=== PATIENT | female | born 1960 | race African-American/Black ===

== ENCOUNTER → 2017-01-09 16:11 | Outpatient (CLI) | payer MEDICAID ==
[2010-10-19 08:17] VITALS: BMI 23.2
== END | disposition home or self-care (01) ==
LOC: D.CT 16:00
DX: R06.02 Shortness of breath (principal)

== ENCOUNTER 2017-03-01 13:37 | Inpatient (IN) | payer MEDICAID ==
[~2017-03-01] VITALS: Ht 170.2 cm; Wt 75.1 kg
[2017-03-01] VITALS (9 sets, daily range): BP systolic 90–108; BP diastolic 54–75; BMI 22.6
--- NOTE | ~2017-03-01 | HP ---
PATIENT: MEGGAN PATEL MEDICAL RECORD: [id number] ACCOUNT: [id number] LOCATION:[facility]2307 : 62 ADMISSION DATE: 03/01/17 HISTORY AND PHYSICAL EXAMINATION HISTORY OF PRESENT ILLNESS: A 56-year-old black female, who is a patient of mine, presented to the clinic upon day of admission with a 2-day history of a rash that has been present on her lower extremities. The patient states she felt increasing amount of pain in her right buttock area and has been unable to sit for the last 24 hours, no drainage from this area, but she noticed that she had a discharge present on her underwear when she went to the restroom after she arrived to the clinic. The patient stated that she felt uneasy and did not feel like in her usual state of health. Over the last 3-4 days, she felt a pop sensation in her shoulders when she had increased amount tightness in her shoulders. The patient is evaluated and found to have evidence of possible sepsis. Her blood pressure is low and she has rashes present. She needs to be hospitalized for IV antibiotics and appropriate intervention. PAST MEDICAL HISTORY: Significant for pulmonary embolus, lupus, lumbar radiculopathy, lymphedema, IBS, constipation, dyspnea, chronic low back pain, depression, pancytopenia, recurrent anemia, ADD, GERD, anxiety, asthma, shortness of breath. PAST SURGICAL HISTORY: The patient surgically has a cyst taken off of her back. She has tendon release on her right upper extremity and also a cholecystectomy. SOCIAL HISTORY: The patient does not smoke, does not drink alcohol. MEDICATION ALLERGIES: INCLUDE TALWIN. PRESENT MEDICATIONS: Include Celexa 40 mg daily, Prilosec 20 mg b.i.d., [place] 10 mg t.i.d. p.r.n., Klonopin 1 mg q.i.d. p.r.n., ProAir inhaler for rescue, Singulair 10 mg q.h.s., Symbicort 160 two puffs b.i.d., Eliquis 2.5 mg b.i.d., B12 vitamin, Plaquenil 200 mg b.i.d. She also has Linzess 145 mcg. PHYSICAL EXAMINATION: VITAL SIGNS: Blood pressure is 80/50 with mild tachycardia that is present. Her heart rate today is only 95 on exam. She is afebrile, pulse ox 97%. GENERAL: She is a thin, ill-appearing 56-year-old black female. Nurse, Golden, was present during her exam. HEENT: Her pupils are equal, round and reactive to light. Extraocular movements are intact. Oral cavity and oropharynx are otherwise clear. NECK: No cervical or pharyngeal adenopathy. No nuchal rigidity. LUNGS: Have shallow rales heard in the bases, but otherwise clear. HEART: Regular rate and rhythm with I/ systolic ejection murmur. ABDOMEN: Soft, nontender, positive bowel sounds. No hepatosplenomegaly, no masses. EXTREMITIES: She has evidence of a blanching maculopapular-type rash on bilateral lower extremities extending up to the buttocks area, it is warm and also blanches. She has good capillary refill of 2 seconds are noted. She has good ____. BUTTOCKS: Visualization of her buttock area shows an open draining purulent abscess on the right buttock area, expressed approximately 7 cc of pus from this area. We will obtain culture in the hospital from this aspect. HISTORY AND PHYSICAL [id number] MEGGAN PATEL PLAN: The patient was given a gram of Rocephin and being admitted to the ICU for sepsis and IV antibiotics. Orders were written. The patient was notified of the admitting team. Also, consulted pulmonary with Dr. Dela Cruz for ICU management and with Dr. Oliva for infectious disease. TRANSINT:[id number] Voice Confirmation ID: [id number] DOCUMENT ID: [id number] ORION PECK MD CC: [id number] DICTATION DATE: 03/01/17 145 ROOFING MACHINE OPERATOR: 03/01/17 1614 ADM IN [facility] [address] [place] [address]
[2017-03-01] MEDS ORDERED: CELEXA40 MG PO (14:02)
[2017-03-01] MEDS ORDERED: OMEPRAZOLE40 MG PO (14:02)
[2017-03-01] MEDS ORDERED: HYDROCODONE-APA1 TAB PO (14:03)
[2017-03-01] MEDS ORDERED: PROAIR HFA8.5 GM INH (14:03)
[2017-03-01] MEDS ORDERED: KLONOPIN1 MG PO (14:03)
[2017-03-01] MEDS ORDERED: SYMBICORT 16010.2 GM INH (14:04)
[2017-03-01] MEDS ORDERED: SINGULAIR10 MG PO (14:04)
[2017-03-01] MEDS ORDERED: ELIQUIS5 MG PO (14:04)
[2017-03-01] MEDS ORDERED: MULTIPLE VITAMI1 TA1 PO (14:05)
[2017-03-01] MEDS ORDERED: PLAQUENIL200 MG PO (14:05)
[2017-03-01] MEDS ORDERED: LINZESS145 MCG PO (14:06)
[2017-03-01] MEDS ORDERED: TESSALON PERLE100 MG PO (14:06)
[2017-03-01] MEDS ORDERED: DESERYL100 MG PO (14:07)
[2017-03-01 15:48] LABS: BASOPHILS 0 % (0-2); EOSINOPHILS 0.1 % (0-7); HEMATOCRIT 31.3 % (36.0-48.0); HEMOGLOBIN 10.1 g/dL (12-16); IMMATURE GRANULOCYTES 0.3 % (0-5); LYMPHOCYTES 7.1 % (15-50); MCH 28.9 pg (26.0-34.0); MCHC 32.3 g/dL (31.0-37.0); MCV 89.7 fL (80.0-100.0); MEAN PLATELET VOLUME 10.1 fL (7.4-10.4); MONOCYTES 7.9 % (2-11); NEUTROPHILS 84.6 % (40-80); PLATELET COUNT 168 10x3/uL (130-400); RBC 3.49 10x6/uL (4.00-5.40); RDW 12.5 % (11.5-14.5); WBC 10.6 10x3/uL (4.8-10.8)
[2017-03-01 16:14] LABS: ALBUMIN 3.2 g/dL (3.4-5.0); ANION GAP 9.8 mmol/L (8-16); BILIRUBIN - TOTAL 0.6 mg/dL (0.2-1.3); CALCIUM 8.2 mg/dL (8.5-10.1); CARBON DIOXIDE 29.6 mmol/L (21.0-32.0); CREATININE - SERUM 1.4 mg/dL (0.6-1.3); POTASSIUM - SERUM 3.4 mmol/L (3.5-5.1); PROTEIN - SERUM 6.5 g/dL (6.4-8.2); THYROID STIMULATING HORMONE 0.94 uIU/mL (0.36-3.74)
--- NOTE | 2017-03-01 18:10 | NUR ---
PATIENT NOTED TO HAVING RED RASH ON THIGHS AND LEGS, STATED DOCTOR TOLD HER IT WAS FROM HER BOILS, THIS WAS NOTED PRIOR TO SURGERY, GUILLAUME.
--- NOTE | 2017-03-01 18:41 | NUR ---
PATIENT BACK FROM SURGERY. VITALS STABLE. OXYGEN 2L N/C IN USE SECONDARY TO SATS 88% ON ROOM AIR. SHE HAS PRIMROSE DRAIN. DR NARAYAN STATED THAT THE DRESSING MAY NEED TO BE CHANGED A COUPLE TIMES THROUGHOUT THE EVENING, BUT THE PACKING WOULD BE CHANGED TOMORROW. PATIENT C/O PAIN 8/10. MORPHINE TELEVISION PRESENTER SET UP PER ORDERS. PATIENT DENIES FURTHER NEEDS.
--- NOTE | 2017-03-01 19:30 | NUR ---
RECEIVED CARE OF PT, ASSESSMENT PER FLOWSHEET. PT ALERT AND ORIENTED X 4, ON 3L O2 VIA NC, BREATH SOUNDS DIMINISHED IN BASES, PPP, DRESSING NOTED TO RECTAL/PERINEAL AREA CDI, HR SR AT A RATE OF 81 ON CM, MORPHINE VENEER MANUFACTURER BUTTON AND CALL LIGHT IN REACH, ASSISTED PT TO REPOSITION, DENIES ANY OTHER NEEDS.
--- NOTE | 2017-03-01 21:30 | NUR ---
PT NIECE IN FOR VISITATION, UPDATE GIVEN.
--- NOTE | 2017-03-01 23:30 | NUR ---
REASSESSMENT PER FLOWSHEET, NO ACUTE CHANGES NOTED. ICE WATER PROVIDED PER PT REQUEST, DENIES ANY OTHER NEEDS, VSS, CONT POC.
[2017-03-02] VITALS (24 sets, daily range): BP systolic 87–116; BP diastolic 47–77; Ht 170.2 cm; Wt 75.1 kg
--- NOTE | 2017-03-02 00:52 | NUR ---
PT RESTING IN BED WITH EYES CLOSED, VSS, CONT TO MONITOR.
--- NOTE | 2017-03-02 03:25 | NUR ---
ASSISTED PT TO BSC, VOIDED 550 CC OF BLOODY URINE, BACK TO BED. DRESSING TO RECTAL/PERINEAL AREA COMING OFF. REDRESSED AREA WITH 4 X 4'S, DRAIN PATENT, SECURED WITH MEDIPORE TAPE.
[2017-03-02 04:23] LABS: BASOPHILS 0 % (0-2); EOSINOPHILS 0 % (0-7); HEMATOCRIT 28.4 % (36.0-48.0); IMMATURE GRANULOCYTES 0.2 % (0-5); LYMPHOCYTES 3.2 % (15-50); MCH 28.5 pg (26.0-34.0); MCHC 31.7 g/dL (31.0-37.0); MCV 89.9 fL (80.0-100.0); MEAN PLATELET VOLUME 9.3 fL (7.4-10.4); NEUTROPHILS 91.6 % (40-80); PLATELET COUNT 148 10x3/uL (130-400); RBC 3.16 10x6/uL (4.00-5.40); RDW 12.3 % (11.5-14.5); WBC 10.7 10x3/uL (4.8-10.8)
[2017-03-02 04:34] LABS: ALBUMIN 2.6 g/dL (3.4-5.0); ANION GAP 10.6 mmol/L (8-16); BILIRUBIN - TOTAL 0.23 mg/dL (0.2-1.3); CALCIUM 7.8 mg/dL (8.5-10.1); CARBON DIOXIDE 27.4 mmol/L (21.0-32.0); MAGNESIUM - SERUM 1.9 mg/dL (1.8-2.4); PHOSPHOROUS 3.8 mg/dL (2.5-4.9); PROTEIN - SERUM 6.5 g/dL (6.4-8.2)
--- NOTE | 2017-03-02 05:18 | NUR ---
AM LABS REVIEWED, NOTHING TO TREAT PER ELECTROLYTE PROTOCOL.
--- NOTE | 2017-03-02 07:46 | CN ---
PATIENT NAME:MEGGAN PATEL MEDICAL RECORD: [id number] : 62 LOCATION:[facility]2307 ADMIT DATE: 03/01/17 ACCOUNT: [id number] CONSULTING PHYSICIAN: JASS NARAYAN MD REFERRING PHYSICIAN: ORION PECK MD DATE OF CONSULTATION: 03/01/2017 Surgical Consultation SURGEON: Jass Narayan MD CHIEF COMPLAINT: Rectal pain and drainage. HISTORY OF PRESENT ILLNESS: This is a 56-year-old female who was directly admitted from her pulmonology critical care doctor's office today for presumed sepsis. The patient is complaining of pain around her rectum. She also complains of pain in defecation. She denies having any bloody bowel movements. Denies any history of mucousy bowel movements. The patient was having fever and chills at home. She was hypotensive on evaluation in the office today. PAST MEDICAL HISTORY: Includes obstructive sleep apnea, history of pulmonary embolism, history of DVT, COPD, gastroesophageal reflux disease, hiatal hernia, lupus, dyspnea, chronic cough, and chest pain. FAMILY HISTORY: Mother with uterine carcinoma and COPD. Her brother of lung cancer and COPD. Her brother has diabetes and her maternal grandmother had lung cancer. SOCIAL HISTORY: She is a former smoker. She did smoke 1 pack a day for 6 years. PAST SURGICAL HISTORY: Cholecystectomy, hysterectomy, and left knee surgery. REVIEW OF SYSTEMS: A 12-point review of system was obtained, pertinent positive and negative as per the HPI. MEDICATIONS: Please see electronic medical record for a full list of medications. PHYSICAL EXAMINATION: VITAL SIGNS: Temperature 99.1, pulse 85, respirations 18, blood pressure 90/66, and satting 100% on room air. GENERAL: This is a well-developed, well-nourished female in moderate distress. PSYCHIATRIC: She is alert and oriented times 3. EYES: Extraocular muscles intact. NECK: Supple. EAR, NOSE, AND THROAT: Mucous membranes are dry. Poor dentition. CARDIOVASCULAR: Normal sinus rhythm. No murmurs. PULMONARY: She has got decreased breath sounds bilaterally, otherwise normal. ABDOMEN: Soft, nontender, and nondistended. EXTREMITIES: No edema. SKIN: Warm and dry with normal turgor. RECTUM: Her rectum is exquisitely tender to palpation. It is fluctuant. The skin is raised. There is an open pinpoint lesion just to the left side of the buttocks, it is actively draining purulent material. The patient could not CONSULT REPORT [id number] MEGGAN PATEL tolerate a full rectal exam. IMPRESSION: This is a 56-year-old female with a perirectal abscess. PLAN: 1. The patient has been admitted to the ICU. 2. Broad-spectrum IV antibiotics. 3. IV narcotics for pain control. 4. OR for urgent incision and drainage of perirectal abscess. We will obtain fluid cultures at the time of abscess drainage. TRANSINT:[id number] Voice Confirmation ID: [id number] DOCUMENT ID: [id number] JASS NARAYAN MD at 0746 CC: [id number] DICTATION DATE: 03/01/17 1600 CO FOUNDER AND CEO: 03/01/17 2340 ADM IN [facility] [address] [place] [id number]
--- NOTE | 2017-03-02 07:46 | OP ---
PATIENT NAME: MEGGAN PATEL MEDICAL RECORD: [id number] :62 LOCATION:.[facility] D.2307 ADMISSION DATE:03/01/17 SURGEON: JASS NARAYAN MD DATE OF OPERATION: 03/01/2017 Surgical Procedure Note SURGEON: Jass Narayan MD PREOPERATIVE DIAGNOSIS: Perirectal abscess. POSTOPERATIVE DIAGNOSIS: Horseshoe perirectal abscess. PROCEDURE PERFORMED: 1. Incision and drainage of horseshoe perirectal abscess. 2. Rectal examination under anesthesia. ANESTHESIA: General. COMPLICATIONS: None. SPECIMENS: Anaerobic cultures to aerobic cultures. Case was grossly contaminated. ESTIMATED BLOOD LOSS: 20 cc. OPERATIVE COURSE: After consent was obtained, the patient was taken to the operating room and placed in supine position on the operating table. Next, general anesthesia was given via endotracheal intubation. Next, a timeout was taken to confirm the correct patient and procedure. The patient was placed in stirrups. The perineum was prepped and draped in typical sterile fashion. Local anesthetic was administered. The rectum was serially dilated using the [place]Hill retractors. There is a large hard area of induration on the right buttock approximately 8 cm x 6 cm. During rectal examination, there was no pus expressed in the anterior portion of the rectum. The area on the right side had a small opening that was with some purulent drainage. There is also an area of a lesion on the left buttock with a small again pinpoint opening with white purulent fluid. The area of induration, an elliptical incision was made in the right buttock 3 cm x 2 cm. Immediately, there was greater than 20 to 30 cc of purulent material expressed from the wound. At this time, anaerobic and aerobic cultures were taken. At this time, blunt finger dissection was performed. The abscess tract carried past the midline anteriorly and ended at the skin open on the left buttock. The left buttock area in question was opened with a 10-blade scalpel. A Galt dressing was placed. The wound was then copiously irrigated with peroxide and normal saline. The right buttock was packed with Kerlix soaked in peroxide. The wound was dressed with 4 x 4s, ABD and surgical panties. At the end of the case, all needle and instrument counts were correct. No complications occurred. The patient was extubated and transferred to the PACU in stable condition. TRANSINT:[id number] Voice Confirmation ID: [id number] DOCUMENT ID: [id number] OPERATIVE REPORT [id number] MEGGAN PATEL,JASS Bhatia MD at 0746 CC: [id number] DICTATION DATE: 03/01/171746 ENVIRONMENTAL INTERN: 03/02/17 0156 ADM IN [place] [address] [place] [address]
--- NOTE | 2017-03-02 19:30 | NUR ---
RESUMED CARE OF PT, ASSESSMENT PER FLOWSHEET. PT ALERT AND ORIENTED X 4, ON RA, BREATH SOUNDS CTA, DENIES PAIN AT THIS TIME, TEST DRIVER BUTTON IN REACH. ASSISTED TO MORE COMFORTABLE POSITION, CALL LIGHT IN REACH.
--- NOTE | 2017-03-02 21:30 | NUR ---
PT NEPHEWS IN FOR VISITATION, UPDATE GIVEN, ALL QUESTIONS ANSWERED, PT VISITING WITH FAMILY IN NO APPARENT DISTRESS.
--- NOTE | 2017-03-02 23:30 | NUR ---
REASSESSMENT PER FLOWSHEET, NO ACUTE CHANGES NOTED. PT DENIES ANY NEEDS AT THIS TIME, VSS, CONT POC.
[2017-03-03] VITALS (18 sets, daily range): BP systolic 90–124; BP diastolic 52–85
--- NOTE | 2017-03-03 01:12 | NUR ---
PT RESTING IN BED WITH EYES CLOSED, VSS, CONT TO MONITOR.
[2017-03-03 04:09] LABS: BASOPHILS 0 % (0-2); EOSINOPHILS 1.1 % (0-7); HEMATOCRIT 25.1 % (36.0-48.0); HEMOGLOBIN 8.1 g/dL (12-16); IMMATURE GRANULOCYTES 0.3 % (0-5); LYMPHOCYTES 12.7 % (15-50); MCH 28.9 pg (26.0-34.0); MCHC 32.3 g/dL (31.0-37.0); MCV 89.6 fL (80.0-100.0); MEAN PLATELET VOLUME 9.4 fL (7.4-10.4); NEUTROPHILS 79.9 % (40-80); PLATELET COUNT 153 10x3/uL (130-400); RDW 12.5 % (11.5-14.5); WBC 6.2 10x3/uL (4.8-10.8)
[2017-03-03 04:27] LABS: ANION GAP 9.1 mmol/L (8-16); CALCIUM 7.7 mg/dL (8.5-10.1); CARBON DIOXIDE 27.3 mmol/L (21.0-32.0); MAGNESIUM - SERUM 1.8 mg/dL (1.8-2.4); PHOSPHOROUS 3.3 mg/dL (2.5-4.9); POTASSIUM - SERUM 3.4 mmol/L (3.5-5.1)
--- NOTE | 2017-03-03 04:50 | NUR ---
AM LABS REVIEWED FIRST OF 4 KCL 10 MEQ RIDERS INITIATED TO TREAT K+ OF 3.4 PER ELECTROLYTE PROTOCOL.
[2017-03-03 17:01] LABS: POTASSIUM - SERUM 3.8 mmol/L (3.5-5.1); VANCOMYCIN - TROUGH 14.2 ug/mL (10.0-20.0)
--- NOTE | 2017-03-03 17:30 | NUR ---
REACEIVED TO ROOM 2216 FROM ICU VIA BED.
--- NOTE | 2017-03-03 19:44 | NUR ---
NO CHANGES IN INITIAL ASSESSMENT COMPLETED. CDALL LIGHT IN REACH. WILL CONTINUIE WITH PLAN OF CARE.
--- NOTE | 2017-03-03 20:00 | NUR ---
ASSESSMENT PER FLOWSHEET. IV PATENT LEFT ARM NOW LEAKING IV REMOVED AND CONNECT TO SALINE LOCK SITE ON RT AC. RESUMED IV FLUIDS OF NS AT 125CC'S/HR. PUBLIC AFFAIRS OFFICER OF MORPHINE IN USE WITH SETTINGS AT 1MG Q10MIN W/10MG Q4H L/O. UP WITH HELP TO BR VOIDS. DRESSING TO PERIRECTAL AREA INTACT WITH 2 PINROSE DRAINS NOTED. DRESSING REINFORCED WITH 4X4'S AND TAPE. THEA PAD APPLIED TO AREA WITH DISPOSIBLE UNDERWARE ON.ASSISTED BACK TO BED. SR UP X2 CALL LIGHT WITHIN REACH SCD'S ON.
--- NOTE | 2017-03-03 21:00 | NUR ---
MEDS GIVEN PER MAR.
--- NOTE | 2017-03-03 22:00 | NUR ---
UP WITH HELP TO BR VOIDS WELL.
[2017-03-04 00:09] VITALS: BP 108/70
--- NOTE | 2017-03-04 00:15 | NUR ---
EYES CLOSED RESPIRATIONS WITH EASE AND UNLABORED.
--- NOTE | 2017-03-04 02:00 | NUR ---
AWAKE UP WITH HELP TO BR VOIDS WELL ASSISTED BACK TO BED SR UP X2 CALL LIGHT WITHIN REACH.
--- NOTE | 2017-03-04 03:17 | NUR ---
MEDS GIVEN PER MAR.
[2017-03-04 04:00] VITALS: BP 125/72
[2017-03-04 05:46] LABS: BASOPHILS 0 % (0-2); HEMATOCRIT 29.6 % (36.0-48.0); IMMATURE GRANULOCYTES 0.6 % (0-5); LYMPHOCYTES 15.4 % (15-50); MCH 28.8 pg (26.0-34.0); MCHC 33.8 g/dL (31.0-37.0); MEAN PLATELET VOLUME 9.2 fL (7.4-10.4); MONOCYTES 7.9 % (2-11); NEUTROPHILS 74.1 % (40-80); PLATELET COUNT 167 10x3/uL (130-400); RDW 14.3 % (11.5-14.5); WBC 4.9 10x3/uL (4.8-10.8)
[2017-03-04 06:05] LABS: ALBUMIN 2.2 g/dL (3.4-5.0); ANION GAP 11.1 mmol/L (8-16); BILIRUBIN - TOTAL 0.9 mg/dL (0.2-1.3); CALCIUM 7.9 mg/dL (8.5-10.1); CARBON DIOXIDE 25.3 mmol/L (21.0-32.0); POTASSIUM - SERUM 3.4 mmol/L (3.5-5.1); PROTEIN - SERUM 5.6 g/dL (6.4-8.2)
[2017-03-04 06:07] LABS: MCV 85.3 fL (80.0-100.0); RBC 3.47 10x6/uL (4.00-5.40)
[2017-03-04 07:59] VITALS: BP 136/84
--- NOTE | 2017-03-04 08:01 | NUR ---
AWAKE AND ALERT. INCONTINENT OF STOOL. SKIN CARE PER STAFF. ASSISTED UP TO BR FOR MORE BM. SKIN CARE PER SELF. DRESSING TO THEA AREA REMOVED RT STOOL ON SAME. LUNGS ARE DIMINISHED THROUGHOUT LUNG MAHMOOD, NO COUGH NOTED. SKIN IS INTACT EXCEPT WOUND TO THEA AREA BEFORE. IV TO RIGHT AC IS PATENT WITHOUT REDNESS AT INSERTION SITE. SCD'S IN PLACE. REPOSITIONED IN BED FOR COMFORT. DENIES NEEDS AT THIS TIME.
--- NOTE | 2017-03-04 10:14 | NUR ---
RESTING QUIETLY AT THIS TIME. DENIES NEEDS.
--- NOTE | 2017-03-04 10:30 | NUR ---
DRESSING CHANGED TO THEA AREA. WOUND IS BEEFY RED. SULLY DRAIN IN PLACE. HAD MULTIPLE EPISODES OF DIARREHA WHILE THIS WAS BEING DONE. SKIN CARE PER STAFF. LINENS CHANGED. ALSO HAD APPROXIMATLY 50CC YELLOW EMESIS. WILL MONITOR.
--- NOTE | 2017-03-04 10:49 | NUR ---
Patient Name: MEGGAN PATEL Admission Status: Elective Accout number: [id number] Admission Date: 03-01-2017 : 1960 Admission Diagnosis: Attending: ANASTACIO Current LOS: 3 Anticipated DC Date: 03-05-2017 Planned Disposition: Home with Home Health Primary Insurance: [facility] PRIVATE OPTIONS ANA M Discharge Planning Comments: CM MET WITH PATIENT REGARDING D/C NEEDS AND PLANS. PATIENT LIVES ALONE BUT HER SISTER (ADAM) LIVES NEXT DOOR TO HER AND WILL HELP HER IF NEEDED. PATIENT HAS 2 STEPS TO ENTER HER HOME AND NO STAIRS INSIDE. PATIENT STATED HER HOME IS SAFE. PATIENT IS INDEPENDENT WITH HER CARE AND HAS A CANE IF NEEDED AT HOME. PATIENTS PCP IS DR. PECK AND PHARMACY IS [facility]. PATIENT HAS CHOSEN [facility] AND SIGNED THE [facility] FORM. REFERRAL WILL BE SENT TODAY. CM WILL CONTINUE TO FOLLOW PATIENT WITH D/C NEEDS AND PLANS. PCP DR. MADHURI COBB [facility] [phone] ADAM ALEMAN ([place]) [phone] [facility]. HOME CARE [phone] FAX [phone] Client Service Associate: Joselin Chowdhury Is the patient Alert and Oriented? Yes 0 * How many steps to enter\exit or inside your home? 2 0 * PCP DR. PECK 0 * Pharmacy [facility] 0 * Preadmission Environment Home Alone 0 * ADLs Independent 0 * Equipment Cane 0 * List name and contact numbers for known caregivers / representatives who currently or will assist patient after discharge: ADAM ALEMAN ([place]) [phone] 0 * Community resources currently utilized None 0 * Additional services required to return to the preadmission environment? Yes 0 * Can the patient safely return to the preadmission environment? Yes 0 * Has this patient been hospitalized within the prior 30 days at any hospital? No 0 Grand Total: 0
--- NOTE | 2017-03-04 12:00 | NUR ---
RESTING QUIETLY WITH EYES CLOSED. DENIES NEEDS.
[2017-03-04 12:07] VITALS: BP 136/83
--- NOTE | 2017-03-04 14:00 | NUR ---
LOTS OF BRIGHT RED BLOOD NOTED TO BED LINENS. DR. NARAYAN NOTIFIED OF SAME. WOUND TO PERIANAL AREA PACKED WITH KERLEX AND PATIENT POSITIONED IN UPRIGHT POSITION. WILL MONITOR.
--- NOTE | 2017-03-04 16:00 | NUR ---
NO SIGNS OF BLEEDING AT THIS TIME. DR. NARAYAN AWARE OF SAME. REPOSITIONED IN BED FOR COMFORT.
[2017-03-04 16:32] VITALS: BP 119/81
[2017-03-04 16:47] LABS: BASOPHILS 0.1 % (0-2); EOSINOPHILS 1.2 % (0-7); HEMATOCRIT 27.7 % (36.0-48.0); HEMOGLOBIN 9.6 g/dL (12-16); IMMATURE GRANULOCYTES 0.6 % (0-5); LYMPHOCYTES 13.7 % (15-50); MCH 29.4 pg (26.0-34.0); MCHC 34.7 g/dL (31.0-37.0); MEAN PLATELET VOLUME 9.4 fL (7.4-10.4); MONOCYTES 9.6 % (2-11); NEUTROPHILS 74.8 % (40-80); PLATELET COUNT 172 10x3/uL (130-400); RBC 3.26 10x6/uL (4.00-5.40); RDW 13.9 % (11.5-14.5)
[2017-03-04 16:49] LABS: WBC 6.8 10x3/uL (4.8-10.8)
--- NOTE | 2017-03-04 18:00 | NUR ---
REFUSED TO EAT ANY SUPPER. REFUSED OFFER OF ALTERNATIVE TRAY. DENIES NEEDS. NO CHANGES NOTED. NO SIGNS OF BLEEDING AT THIS TIME.
[2017-03-04 20:00] VITALS: BP 137/85
--- NOTE | 2017-03-04 20:00 | NUR ---
ASSESSMENT PER FLOWSHEET. DRESSING TO PERIRECTAL INCISION C/D/I. IV PATENT RT AC OF NS AT 125CC'S/HR SITE CLEAR. SR UP X2 CALL LIGHT WITHIN REACH.
--- NOTE | 2017-03-04 20:30 | NUR ---
UP TO BR VOIDS ASSISTED BACK TO BED SR UP X2 CALL LIGHT WITHIN REACH SCD'S ON. THEA PAD CHANGED.
--- NOTE | 2017-03-04 21:15 | NUR ---
MEDS GIVEN PER MAR.
--- NOTE | 2017-03-04 22:27 | NUR ---
C/O INCISIONAL PAIN. RATES PAIN LEVEL #6-8. OXY IR 5 MG PO GIVEN FOR PAIN CONTROL.
[2017-03-05] VITALS: BP 117/72
--- NOTE | 2017-03-05 | NUR ---
EYES CLOSED RESPIRATIONS WITH EASE AND UNLABORED. MEDS GIVEN PER DEC.
--- NOTE | 2017-03-05 02:07 | NUR ---
RESTING QUIETLY DENIES NEEDS.
[2017-03-05 04:00] VITALS: BP 131/83
[2017-03-05 07:01] LABS: BASOPHILS 0 % (0-2); EOSINOPHILS 1.8 % (0-7); HEMATOCRIT 25.8 % (36.0-48.0); HEMOGLOBIN 8.9 g/dL (12-16); IMMATURE GRANULOCYTES 0.9 % (0-5); LYMPHOCYTES 18.2 % (15-50); MCH 28.9 pg (26.0-34.0); MCHC 34.5 g/dL (31.0-37.0); MCV 83.8 fL (80.0-100.0); MEAN PLATELET VOLUME 9.4 fL (7.4-10.4); MONOCYTES 11.8 % (2-11); NEUTROPHILS 67.3 % (40-80); PLATELET COUNT 182 10x3/uL (130-400); RBC 3.08 10x6/uL (4.00-5.40); RDW 13.8 % (11.5-14.5); WBC 5.7 10x3/uL (4.8-10.8)
[2017-03-05 07:11] LABS: APTT 39.9 SECONDS (22.8-39.4); INR 1.12 (0.85-1.17); PROTIME 14.3 SECONDS (11.6-15.0)
--- NOTE | 2017-03-05 07:19 | NUR ---
UP WITH HELP TO BR VOIDS PARTIAL LINENS AND GOWN CHANGED SMALL AMOUNT BLOOD NOTED. ASISTED BACK TO BED. SR UP X2 CALL LIGHT WITHIN REACH.
[2017-03-05 07:26] LABS: ANION GAP 13.2 mmol/L (8-16); BILIRUBIN - TOTAL 0.51 mg/dL (0.2-1.3); CALCIUM 7.8 mg/dL (8.5-10.1); CARBON DIOXIDE 24.2 mmol/L (21.0-32.0); CREATININE - SERUM 0.9 mg/dL (0.6-1.3); POTASSIUM - SERUM 3.4 mmol/L (3.5-5.1); PROTEIN - SERUM 5.3 g/dL (6.4-8.2)
--- NOTE | 2017-03-05 07:40 | NUR ---
ASSESSMENT PER FLOW SHEET.PT WITHOUT DISTRESS.DRESSING INNER BUTTOCK CDI,SITE WITHOUT BLEEDING AT PRESENT.PT REPORTS SOME NAUSEA EARLIER AM,BUT RESOLVED NOW.STATES PAIN 8/10 SCALE TO BUTTOCK,BUT DECLINES PAIN MEDS.MONITOR FOR NEEDS.
[2017-03-05 08:28] VITALS: BP 140/90
--- NOTE | 2017-03-05 10:15 | NUR ---
MEDS ORDERED.STILL REPORTS PAIN,BUT STILL DECLINES PAIN MEDS.PT REQUEST SHOWER AFTER IV ABX COMPLETE THIS AM.STATES SHE WANTS PAIN PILL AFTER SHOWER. BACK TO BED FROM BATHROOM.SITE REMAINS WITHOUT BLEEDING.
[2017-03-05 12:42] VITALS: BP 149/82
--- NOTE | 2017-03-05 13:00 | NUR ---
NUTRITION MONITORING & EVAL CHART REVIEWED, PT REMAINS IN ISOLATION. LEATHER STAMPER REPORTS PT REFUSED BREAKFAST SECONDARY TO NAUSEA. WILL CONTINUE TO PROVIDE DIET, MONITOR PO INTAKE. RD FOLLOWING
--- NOTE | 2017-03-05 13:15 | NUR ---
CALL RE.. APPT FOR INFUSION WED.APPT CANCELED.SPOKE WITH ABDELRAHMAN.
--- NOTE | 2017-03-05 13:18 | NUR ---
CALL TO [phone] PER ABDELRAHMAN.SPOKE WITH TIGIST IN SCHEDULING.APPT CANCELED
--- NOTE | 2017-03-05 14:46 | NUR ---
HAS AMBULATED WITH PT TODAY.PT IS NOW UP TO SHOWER.REMAINS WITHOUT NEEDS.MONITOR
[2017-03-05 16:38] VITALS: BP 138/86
--- NOTE | 2017-03-05 18:34 | NUR ---
REMAINS WITHOUT NEEDS,WITHOUT CHANGE.CONT PLAN OF CARE
[2017-03-05 20:00] VITALS: BP 155/83
--- NOTE | 2017-03-05 20:00 | NUR ---
ASSESSMENT PER FLOWSHEET. IV PATENT RT AC OF NS AT 125CC'S/HR SITE CLEAR. PT IN CONTACT ISOLATION. DRESSING TO THEA AREA WITH SCANT AMOUNT OF BLOODY DRAINAGE PINROSE DRAIN IN PLACE. SCD'S ON. SR UP X2 CALL LIGHT WITHIN REACH.
--- NOTE | 2017-03-05 21:15 | NUR ---
MEDS GIVEN PER DEC. C/O NAUSEA. NO EMESIS. ZOFRAN 4MG IVP GIVEN FOR RELIEF OF NAUSEA.
--- NOTE | 2017-03-05 22:00 | NUR ---
UP WITH HELP TO BR VOIDS. SR UP X2 CALL LIGHT WITHIN REACH.
[2017-03-06] VITALS: BP 108/69
--- NOTE | 2017-03-06 01:23 | NUR ---
EYES CLOSED RESPIRATIONS WITH EASE AND UNLABORED.
[2017-03-06 04:00] VITALS: BP 152/89
[2017-03-06 06:00] LABS: BASOPHILS 0 % (0-2); EOSINOPHILS 2.3 % (0-7); HEMATOCRIT 24.6 % (36.0-48.0); HEMOGLOBIN 8.3 g/dL (12-16); IMMATURE GRANULOCYTES 1.6 % (0-5); LYMPHOCYTES 11.7 % (15-50); MCH 28.4 pg (26.0-34.0); MCHC 33.7 g/dL (31.0-37.0); MCV 84.2 fL (80.0-100.0); MEAN PLATELET VOLUME 9.3 fL (7.4-10.4); MONOCYTES 14.9 % (2-11); NEUTROPHILS 69.5 % (40-80); PLATELET COUNT 195 10x3/uL (130-400); RBC 2.92 10x6/uL (4.00-5.40); RDW 13.8 % (11.5-14.5); WBC 4.4 10x3/uL (4.8-10.8)
[2017-03-06 06:21] LABS: ALBUMIN 2.1 g/dL (3.4-5.0); ALKALINE PHOSPHATASE 117 U/L (46-116); ALT (SGPT) 120 U/L (10-68); BILIRUBIN - TOTAL 0.42 mg/dL (0.2-1.3); CALC OSMOLALITY 283 mosm/kg (275-300); CALCIUM 8.1 mg/dL (8.5-10.1); CARBON DIOXIDE 24.1 mmol/L (21.0-32.0); CHLORIDE - SERUM 110 mmol/L (98-107); CREATININE - SERUM 0.8 mg/dL (0.6-1.3); GLUCOSE 97 mg/dL (74-106); POTASSIUM - SERUM 3.3 mmol/L (3.5-5.1); PROTEIN - SERUM 5.5 g/dL (6.4-8.2); SODIUM 144 mmol/L (136-145); eGFR NON AFRICAN AMERICAN 79 mL/min (90-120)
[2017-03-06 06:23] LABS: UREA NITROGEN 4 mg/dL (7-18)
--- NOTE | 2017-03-06 06:35 | NUR ---
K+ LEVEL =3.3 KCL 40 MEQ PO GIVEN IN ORANGE JUICE PER ELECTROLYTE PROTOCAL
[2017-03-06 07:56] VITALS: BP 130/65
--- NOTE | 2017-03-06 08:30 | NUR ---
ASSESSMENT PER FLOW SHEET.PT WITHOUT DISTRESS.PAIN 9/10 SCALE TO BUTTOCK.IV RESITED TO LEFT FOREARM X1 STICK 22G,ASEPTIC TECH USED. IV DCD WITH CATH INTACT RIGHT AC
[2017-03-06 12:34] VITALS: BP 130/78
[2017-03-06 15:50] VITALS: BP 130/81
[2017-03-06 19:00] VITALS: BP 120/82
--- NOTE | 2017-03-06 20:00 | NUR ---
ASSESSMENT PER FLOWSHET. IV PATENT LEFT ARM OF NS AT 125CC'S/HR SITE CLEAR. UP WITH HELP TO BR VOIDS WELL. ASSISTED BACK TO BED SR UP X2 CALL LIGHT WITHIN REACH. SCD'S REAPPLIED TO LEGS.
--- NOTE | 2017-03-06 21:15 | NUR ---
MEDS GIVEN PER MAR.
--- NOTE | 2017-03-06 22:19 | NUR ---
C/O INCISIONAL PAIN. RATES PAIN LEVEL #6. OXY IR 5MG TAB ONE PO GIVEN FOR PAIN CONTROL.
[2017-03-07] VITALS (20 sets, daily range): BP systolic 112–153; BP diastolic 76–99
--- NOTE | 2017-03-07 | NUR ---
MEDS GIVEN PER DEC. STATES PAIN PILL DID HELP.
--- NOTE | 2017-03-07 01:25 | NUR ---
EYES CLOSED RESPIRATIONS WITH EASE AND UNLABORED.
[2017-03-07 05:10] LABS: BASOPHILS 0.3 % (0-2); EOSINOPHILS 3.4 % (0-7); HEMATOCRIT 23.6 % (36.0-48.0); HEMOGLOBIN 7.9 g/dL (12-16); IMMATURE GRANULOCYTES 2.8 % (0-5); LYMPHOCYTES 21.6 % (15-50); MCH 28.5 pg (26.0-34.0); MCHC 33.5 g/dL (31.0-37.0); MCV 85.2 fL (80.0-100.0); MEAN PLATELET VOLUME 9.1 fL (7.4-10.4); MONOCYTES 15.2 % (2-11); NEUTROPHILS 56.7 % (40-80); PLATELET COUNT 216 10x3/uL (130-400); RBC 2.77 10x6/uL (4.00-5.40); WBC 3.9 10x3/uL (4.8-10.8)
[2017-03-07 06:38] LABS: ALBUMIN 2.1 g/dL (3.4-5.0); ANION GAP 10.8 mmol/L (8-16); BILIRUBIN - TOTAL 0.11 mg/dL (0.2-1.3); CALCIUM 7.6 mg/dL (8.5-10.1); CARBON DIOXIDE 25.4 mmol/L (21.0-32.0); CREATININE - SERUM 0.9 mg/dL (0.6-1.3); POTASSIUM - SERUM 3.2 mmol/L (3.5-5.1)
--- NOTE | 2017-03-07 07:52 | NUR ---
PRN ZOFRAN ADMINISTERED AT THIS TIME FOR C/O NAUSEA WITHOUT EMESIS. PINROSE DRAIN REMAINS PATENT. REMAINS IN CONTACT ISOLATION. CALL LIGHT IN REACH, WILL CONTINUE WITH PLAN OF CARE.
--- NOTE | 2017-03-07 09:55 | NUR ---
PROVIDED PT WITH YOGURT AND CHOCOLATE BOOST AT HER REQUEST. DENIES FURTHER NEEDS AT THIS TIME AND REMAINS IN CONTACT ISOLATION. CALL LIGHT IN REACH, PT IS SELF AMBULATORY. WILL CONTINUE WITH PLAN OF CARE.
--- NOTE | 2017-03-07 17:10 | NUR ---
1ST UNITS OF BLOOD COMPLETE AT THIS TIME. VITAL SIGNS STABLE AND PT WITHOUT S/S OF REACTION. IV TO LEFT FOREARM PATENT WITH NO S/S OF INFILTRATION PRESENT.
[2017-03-08 00:45] VITALS: BP 139/84
--- NOTE | 2017-03-08 00:45 | NUR ---
PT RECEIVED 2ND UNIT PRBC'S. INFUSION COMPLETE. NO TRANSFUSION REACTION. PT TOLERATED WELL. SCHEDULED ANTIBIOTIC RUNNING NOW. NO NEEDS. WILL CONTINUE TO MONITOR.
[2017-03-08 04:00] VITALS: BP 134/74
[2017-03-08 06:42] LABS: BASOPHILS 0.3 % (0-2); EOSINOPHILS 3.1 % (0-7); HEMATOCRIT 26.9 % (36.0-48.0); HEMOGLOBIN 9.2 g/dL (12-16); IMMATURE GRANULOCYTES 1.6 % (0-5); MCH 29.2 pg (26.0-34.0); MCHC 34.2 g/dL (31.0-37.0); MCV 85.4 fL (80.0-100.0); MEAN PLATELET VOLUME 8.8 fL (7.4-10.4); MONOCYTES 14.8 % (2-11); NEUTROPHILS 55.2 % (40-80); PLATELET COUNT 224 10x3/uL (130-400); RBC 3.15 10x6/uL (4.00-5.40); WBC 3.8 10x3/uL (4.8-10.8)
[2017-03-08 06:51] LABS: ALBUMIN 2.1 g/dL (3.4-5.0); ALKALINE PHOSPHATASE 96 U/L (46-116); ALT (SGPT) 78 U/L (10-68); BILIRUBIN - TOTAL 0.41 mg/dL (0.2-1.3); CALCIUM 8.4 mg/dL (8.5-10.1); CARBON DIOXIDE 27.9 mmol/L (21.0-32.0); CHLORIDE - SERUM 111 mmol/L (98-107); CREATININE - SERUM 0.8 mg/dL (0.6-1.3); GLUCOSE 96 mg/dL (74-106); MAGNESIUM - SERUM 1.4 mg/dL (1.8-2.4); PHOSPHOROUS 4.5 mg/dL (2.5-4.9); POTASSIUM - SERUM 3.6 mmol/L (3.5-5.1); PROTEIN - SERUM 5.5 g/dL (6.4-8.2); SODIUM 142 mmol/L (136-145); eGFR NON AFRICAN AMERICAN 79 mL/min (90-120)
[2017-03-08 06:54] LABS: CALC OSMOLALITY 279 mosm/kg (275-300); UREA NITROGEN 3 mg/dL (7-18)
--- NOTE | 2017-03-08 08:00 | NUR ---
ASSESSMENT PER FLOW SHEET.PT UP IN ROOM.SHE IS WITHOUT DISTRESS.CALL LIGHT IN REACH
[2017-03-08 08:11] VITALS: BP 138/71
[2017-03-08 12:27] VITALS: BP 147/95
--- NOTE | 2017-03-08 12:54 | NUR ---
HAS HAD SHOWER AND PLANS TO AMBULATE.REMAINS WITHOUT DISTRESS.STILL SMALL AMOUNTS OF BLEEDNG NOTED FROM BUTTOCK WOUND.MONITOR
[2017-03-08 15:57] VITALS: BP 146/84
--- NOTE | 2017-03-08 19:01 | NUR ---
REMAINS WITHOUT NEEDS,WITHOUT DISTRESS.CONT PLAN OF CARE
[2017-03-08 20:00] VITALS: BP 168/93
[2017-03-09] VITALS: BP 141/79
--- NOTE | 2017-03-09 01:26 | NUR ---
PATIENT RESTING WITH EYES CLOSED AND NO VISIBLE SIGNS OF DISTRESS. BED IN LOWEST POSITION AND CALL LIGHT WITHIN REACH.
[2017-03-09 04:00] VITALS: BP 149/93
[2017-03-09 05:40] LABS: BASOPHILS 0.3 % (0-2); EOSINOPHILS 1.8 % (0-7); HEMATOCRIT 28.3 % (36.0-48.0); HEMOGLOBIN 9.6 g/dL (12-16); LYMPHOCYTES 24.6 % (15-50); MCH 29.1 pg (26.0-34.0); MCHC 33.9 g/dL (31.0-37.0); MCV 85.8 fL (80.0-100.0); MEAN PLATELET VOLUME 8.5 fL (7.4-10.4); NEUTROPHILS 59.3 % (40-80); PLATELET COUNT 258 10x3/uL (130-400); RDW 14.2 % (11.5-14.5); WBC 3.9 10x3/uL (4.8-10.8)
[2017-03-09 06:14] LABS: ALBUMIN 2.4 g/dL (3.4-5.0); ALKALINE PHOSPHATASE 97 U/L (46-116); ALT (SGPT) 65 U/L (10-68); BILIRUBIN - TOTAL 0.29 mg/dL (0.2-1.3); CALCIUM 8.7 mg/dL (8.5-10.1); CHLORIDE - SERUM 108 mmol/L (98-107); CREATININE - SERUM 0.8 mg/dL (0.6-1.3); GLUCOSE 94 mg/dL (74-106); MAGNESIUM - SERUM 1.6 mg/dL (1.8-2.4); POTASSIUM - SERUM 3.5 mmol/L (3.5-5.1); PROTEIN - SERUM 5.9 g/dL (6.4-8.2); SODIUM 143 mmol/L (136-145); eGFR NON AFRICAN AMERICAN 79 mL/min (90-120)
[2017-03-09 06:22] LABS: CALC OSMOLALITY 281 mosm/kg (275-300); UREA NITROGEN 4 mg/dL (7-18)
--- NOTE | 2017-03-09 06:43 | NUR ---
PATIENT GIVEN 40 mEq KCl PO FOR LOW POTASSIUM LEVEL
--- NOTE | 2017-03-09 07:30 | NUR ---
RECIEVED PT DURING WALKING ROUNDS. PT RESTING IN BED WITH NO COMPLAINTS OF PAIN OR DISCOMFORT AT THIS TIME. ASSESSMENT DONE PER FLOWSHEET. BED IN LOW POSITION AND CALL LIGHT WITHIN REACH. WILL CONTINUE TO MONITOR.
[2017-03-09 08:49] VITALS: BP 146/75
[2017-03-09 12:19] VITALS: BP 141/83
[2017-03-09 16:37] VITALS: BP 143/81
[2017-03-09 20:00] VITALS: BP 150/97
[2017-03-10 04:00] VITALS: BP 130/87
--- NOTE | 2017-03-10 04:00 | NUR ---
PATIENT SLEEPING WITH NO DISTRESS NOTED. AGREE WITH WHARF LABOURER ASSESSMENT.
[2017-03-10 06:26] LABS: BASOPHILS 0.3 % (0-2); EOSINOPHILS 1.9 % (0-7); HEMATOCRIT 30.4 % (36.0-48.0); IMMATURE GRANULOCYTES 0.5 % (0-5); LYMPHOCYTES 23.6 % (15-50); MCH 28.9 pg (26.0-34.0); MCHC 32.9 g/dL (31.0-37.0); MEAN PLATELET VOLUME 8.4 fL (7.4-10.4); MONOCYTES 13.5 % (2-11); NEUTROPHILS 60.2 % (40-80); PLATELET COUNT 269 10x3/uL (130-400); RBC 3.46 10x6/uL (4.00-5.40); RDW 14.7 % (11.5-14.5); WBC 3.8 10x3/uL (4.8-10.8)
[2017-03-10 06:31] LABS: MCV 87.9 fL (80.0-100.0)
--- NOTE | 2017-03-10 08:30 | NUR ---
ASSESSMENT PER FLOW SHEET.PT WITHOUT DISTRESS.DENIES NEEDS.CALL LIGHT IN REACH
[2017-03-10 09:29] VITALS: BP 146/83
--- NOTE | 2017-03-10 10:53 | NUR ---
UP TO SHOWER.REMAINS WITHOUT DISTRESS.
--- NOTE | 2017-03-10 11:47 | NUR ---
PAIN MEDS ORDERED PER DEC.PT HAS SOME PAIN AFTER SHOWER.DENIES OTHER NEEDS AT THIS TIME.REMAINS WITHOUT EXCESSIVE BLEEDING FROM BUTTOCK WOUND.SMALL AMOUNTS OF BLEEDING NOTED TO PAD.DRAIN REMAINS IN PLACE.PT WITHOUT C/O NAUSEA.CALL LIGHT IN REACH.
[2017-03-10 12:46] VITALS: BP 150/74
[2017-03-10] MEDS ORDERED: CLEOCIN HCL150 MG PO (13:57)
[2017-03-10] MEDS ORDERED: MIRALAX17 GM PO (13:58)
[2017-03-10] MEDS ORDERED: FLORAJEN3 CAPS460 MG PO (13:58)
[2017-03-10] MEDS ORDERED: AMOXICILLIN875 MG PO (14:03)
--- NOTE | 2017-03-10 14:49 | NUR ---
IV DCD WITH CATH INTACT.WAITING ON PAPERS FOR DC HOME
--- NOTE | 2017-03-10 15:45 | NUR ---
DISCHARGE INSTRUCTIONS,STATES UNDERSTANDING.
--- NOTE | 2017-03-10 15:58 | NUR ---
LEFT UNIT VIA WHEELCHAIR FOR TRANSPORT HOME
--- NOTE | 2017-03-10 18:33 | NUR ---
Late Entry 1620 CM notified of patient's discharge after she had received discharge instructions and left. [facility] had received referral information on Saturday. TC to [facility]. Received a call back from [facility]. CM faxed discharge instructions, d/c summary and surgeons note. The plan is for the patient to be seen Saturday03/11/17. TC to the patient. Left voice mail message.
== END 2017-03-10 15:58 | disposition home health service (06) | DRG 871 ==
LOC: D.MS 13:37 → D.ICU 13:37 → D.MS 03-03 17:43
PROVIDERS: Family Medicine; Internal Medicine Pulmonary Disease; Surgery; ADMIT Family Medicine
PROC: 0H98XZZ Drainage of Buttock Skin, External Approach (ICD-10-PCS; principal; 2017-03-01 16:00)
DX: A41.9 Sepsis, unspecified organism (principal); R65.21 Severe sepsis with septic shock; K61.1 Rectal abscess; L02.31 Cutaneous abscess of buttock; D62 Acute posthemorrhagic anemia; R23.8 Other skin changes; K21.9 Gastro-esophageal reflux disease without esophagitis; K44.9 Diaphragmatic hernia without obstruction or gangrene; E87.6 Hypokalemia; J30.9 Allergic rhinitis, unspecified; G47.33 Obstructive sleep apnea (adult) (pediatric); M32.9 Systemic lupus erythematosus, unspecified; B95.62 Methicillin resistant Staphylococcus aureus infection as the cause of diseases classified elsewhere; B96.20 Unspecified Escherichia coli [E. coli] as the cause of diseases classified elsewhere

== ENCOUNTER → 2018-01-02 08:18 | Outpatient (CLI) | payer MEDICARE ==
[2017-03-02 11:40] VITALS: BMI 23.8
[~2018-01-02 08:18] MED LIST: AMOXICILLIN875 MG PO; CELEXA40 MG PO; CLEOCIN HCL150 MG PO; DESERYL100 MG PO; ELIQUIS5 MG PO; FLORAJEN3 CAPS460 MG PO; HYDROCODONE-APA1 TAB PO; KLONOPIN1 MG PO; LINZESS145 MCG PO; MIRALAX17 GM PO; MULTIPLE VITAMI1 TA1 PO; OMEPRAZOLE40 MG PO; PLAQUENIL200 MG PO; PROAIR HFA8.5 GM INH; SINGULAIR10 MG PO; SYMBICORT 16010.2 GM INH; TESSALON PERLE100 MG PO
== END | disposition home or self-care (01) ==
LOC: D.RT 12-27 11:00
DX: J44.9 Chronic obstructive pulmonary disease, unspecified (principal)

== ENCOUNTER 2018-08-15 19:00 | Outpatient (CLI) | payer MEDICARE ==
[2017-03-02 11:40] VITALS: BMI 23.8
== END 2018-08-15 23:59 | disposition home or self-care (01) ==
LOC: D.MAMMO 19:00
DX: Z12.31 Encounter for screening mammogram for malignant neoplasm of breast (principal)

== ENCOUNTER 2018-10-30 05:13 | Day surgery (SDC) | payer MEDICARE ==
[~2018-10-30] VITALS: Ht 167.6 cm; Wt 71.7 kg
[~2018-10-30 05:13] MED LIST changes: +COZAAR25 MG PO; +CYCLOBENZAPRINE10 MG PO; +LIPITOR10 MG PO; +MELATONIN5 MG PO; +POTASSIUM CHLO20 MEQ PO; +XANAX0.5 MG PO; +ZOLOFT50 MG PO
[2018-10-30 06:11] LABS: HEMATOCRIT 32.6 % (36.0-48.0); HEMOGLOBIN 10.6 g/dL (12-16); MCH 28.8 pg (26.0-34.0); MCHC 32.5 g/dL (31.0-37.0); MCV 88.6 fL (80.0-100.0); MEAN PLATELET VOLUME 9.4 fL (7.4-10.4); RBC 3.68 10x6/uL (4.00-5.40); RDW 12.6 % (11.5-14.5); WBC 2.4 10x3/uL (4.8-10.8)
[2018-10-30 06:22] VITALS: BP 106/76; Ht 167.6 cm; Wt 71.7 kg
--- NOTE | 2018-11-25 10:06 | OP ---
PATIENT NAME: MEGGAN PATEL MEDICAL RECORD: [id number] :62 LOCATION:[facility] ADMISSION DATE: SURGEON: MARIO KOCH MD DATE OF OPERATION: 10/30/2018 PREOPERATIVE DIAGNOSES: Right L5 and S1 radiculopathy. Right L4-L5 and right L5-S1 foraminal stenosis. PROCEDURES: Right L4-L5 and L5-S1 lumbar laminotomy, medial facetectomy, and foraminotomy with METRx retractor. SURGEON: Mario Koch MD DESCRIPTION OF TECHNIQUE: After induction of general endotracheal anesthesia, the patient was rolled prone on a Dion frame. Lumbar spine was prepped and draped in usual sterile fashion. Fluoroscopic x-ray and spinal needle localized the L4-L5 interspace. A stab incision was created with #11 blade. A series of dilators was used to advance a METRx retractor at L4-L5 interspace on the right side. The level was confirmed with fluoroscopic x-ray. Next, microscope and Midas Arnoldo drill were used to perform laminotomy, medial facetectomy, and foraminotomy at L4-L5 on the right and L5-S1 on the right. Hypertrophied ligamentum flavum was removed at each level and a foraminotomy was carried out with Cloward rongeurs at each level. Following this, the L5 and S1 nerve roots were decompressed well. Meticulous hemostasis was maintained throughout the wound. The wound was irrigated with copious amounts of Ancef irrigant solution. The fascia was closed with 2-0 Vicryl suture. The subdermal layer was closed with 3-0 Vicryl suture. The skin was closed with vito. A sterile dressing was applied to the wound. The patient was awakened in good condition and taken to recovery. All counts were reported as correct. ESTIMATED BLOOD LOSS: Minimal. TRANSINT:[id number] Voice Confirmation ID: [id number] DOCUMENT ID: [id number] MARIO KOCH MD at 1006 CC: [id number] DICTATION DATE: 11/19/18 1444 CAR CONDITIONER: 11/19/18 1925 [facility] 10/30/18 [id number] [place] [address]
== END 2018-10-30 12:10 | disposition home or self-care (01) ==
LOC: D.PAN 05:13 → D.OPS 07:30 → D.PAN 07:30
PROVIDERS: Anesthesiology
DX: M54.16 Radiculopathy, lumbar region (principal); M48.061 Spinal stenosis, lumbar region without neurogenic claudication

== ENCOUNTER → 2019-03-12 13:47 | Outpatient (CLI) | payer MEDICARE | END | disposition home or self-care (01) | LOC: D.RAD 13:47 | DX: R07.89 Other chest pain (principal) ==

== ENCOUNTER 2019-04-29 12:38 | Emergency (ER) | payer MEDICARE ==
[~2019-04-29] VITALS: Ht 167.6 cm; Wt 71.4 kg
[2019-04-29 13:17] LABS: BASOPHILS 0 % (0-2); EOSINOPHILS 2.6 % (0-7); HEMATOCRIT 32.7 % (36.0-48.0); LYMPHOCYTES 27.2 % (15-50); MCH 29.3 pg (26.0-34.0); MCHC 33.6 g/dL (31.0-37.0); MEAN PLATELET VOLUME 10.1 fL (7.4-10.4); MONOCYTES 10.9 % (2-11); NEUTROPHILS 59.3 % (40-80); PLATELET COUNT 163 10x3/uL (130-400); RBC 3.76 10x6/uL (4.00-5.40); RDW 12.8 % (11.5-14.5); WBC 3.1 10x3/uL (4.8-10.8)
[2019-04-29 13:20] LABS: ALBUMIN 4.1 g/dL (3.4-5.0); ALKALINE PHOSPHATASE 87 U/L (46-116); ALT (SGPT) 20 U/L (10-68); APTT 25.6 SECONDS (22.8-39.4); BILIRUBIN - TOTAL 0.38 mg/dL (0.2-1.3); CALC OSMOLALITY 281 mosm/kg (275-300); CALCIUM 8.8 mg/dL (8.5-10.1); CARBON DIOXIDE 28.3 mmol/L (21.0-32.0); CHLORIDE - SERUM 107 mmol/L (98-107); CREATININE - SERUM 0.9 mg/dL (0.6-1.3); GLUCOSE 91 mg/dL (74-106); INR 0.98 (0.85-1.17); POTASSIUM - SERUM 4.2 mmol/L (3.5-5.1); PROTEIN - SERUM 7.2 g/dL (6.4-8.2); PROTIME 12.5 SECONDS (11.6-15.0); SODIUM 141 mmol/L (136-145); UREA NITROGEN 14 mg/dL (7-18); eGFR NON AFRICAN AMERICAN 68 mL/min (90-120)
[2019-04-29 13:30] LABS: CKMB 0.6 U/L (0.0-3.6); CREATINE KINASE 160 UL (21-215); MAGNESIUM - SERUM 1.9 mg/dL (1.8-2.4)
[2019-04-29 13:31] LABS: TROPONIN-I < 0.017 ng/mL (0.000-0.060)
[2019-04-29 16:30] VITALS: Ht 167.6 cm; Wt 71.4 kg
[2019-04-29] MEDS ORDERED: PREDNISONE50 MG PO (17:46)
[2019-04-29] MEDS ORDERED: ULTRAM50 MG PO (17:46)
[2019-04-29] MEDS ORDERED: CYCLOBENZAPRINE10 MG PO (17:46)
[2019-04-29] MEDS ORDERED: ACETAMINOPHEN500 M1 PO (17:46)
[2019-04-29] MEDS ORDERED: VALTREX1000 MG PO (17:46)
[2019-04-29 18:10] VITALS: BP 110/70
== END 2019-04-29 18:12 | disposition home or self-care (01) ==
LOC: D.ER 12:38
PROVIDERS: Family Medicine
DX: R07.9 Chest pain, unspecified (principal)

== ENCOUNTER → 2019-09-07 07:50 | Outpatient (CLI) | payer MEDICARE ==
[2019-04-29 16:30] VITALS: BMI 25.4
[~2019-09-07 07:50] MED LIST changes: +ACETAMINOPHEN500 M1 PO; +PREDNISONE50 MG PO; +ULTRAM50 MG PO; +VALTREX1000 MG PO
== END | disposition home or self-care (01) ==
LOC: D.RT 06-02 13:00
PROVIDERS: ATTEND Internal Medicine Pulmonary Disease
DX: R07.89 Other chest pain (principal); J45.909 Unspecified asthma, uncomplicated

== ENCOUNTER → 2020-02-25 09:00 | Outpatient (CLI) | payer MEDICARE ==
[2019-04-29 16:30] VITALS: BMI 25.4
== END | disposition home or self-care (01) ==
LOC: D.MAMMO 01-13 13:00
PROVIDERS: ATTEND Family Medicine
DX: Z12.31 Encounter for screening mammogram for malignant neoplasm of breast (principal)

== ENCOUNTER → 2021-03-27 11:57 | Outpatient (CLI) | payer MEDICARE ==
[2019-04-29 16:30] VITALS: BMI 25.4
== END ==
LOC: D.MAMMO 03-10 11:30
PROVIDERS: ATTEND Family Medicine
DX: Z12.31 Encounter for screening mammogram for malignant neoplasm of breast (principal)